=== PATIENT | female | born 1975 | race Caucasian/White ===

== ENCOUNTER 2018-04-24 08:37 | Emergency (ER) | payer OTHER, SELFPAY ==
[2018-04-24 08:38] VITALS: BP 121/70; PULSE 62; RESP 17; TEMP 36.4; O2SAT 98; BMI 25.7
--- NOTE | 2018-04-24 09:10 | RAD_ITS ---
STUDY: X-RAY - RIGHT HAND, ATTENTION FIRST FINGER REASON FOR EXAM: Female, 43 years old. Trauma. TECHNIQUE: 3 view(s) of the finger were obtained. COMPARISON: None. FINDINGS: Normal metacarpal head. Normal metacarpophalangeal joint. Normal proximal phalanx. Normal middle phalanx. Normal distal phalanx. Normal proximal interphalangeal joint. Normal distal interphalangeal joint. RAD/Finger(s) Min 2 Views IMPRESSION: No evidence of acute fracture or dislocation. Electronically Signed: Mauricio Brito DO at 9:57 EST , Service support ,
--- NOTE | 2018-04-24 09:13 | ED.DCSUM_ITS ---
- ER Visit Summary Date of Service: 04/24/18 Chief Complaint: [] History of Present Illness: The patient is a 43 F [] Physical Examination: [] Test Results: [] Emergency Department Course and Treatment: I assisted Dr. Spears in the hospital course of this patient. I reviewed the x-ray and there are no foreign bodies. The wound was cleansed and soaked by nursing. I then placed bacitracin on the wound. I will give her Augmentin as well. The wound was dressed by myself as well. She will keep the dressing on for 24 hours. Augmentin at home. She will follow-up with her PCP Treatment Plan: [] Disposition: Discharge Impression: Dog bite, left thumb This note was generated with [employer] software. It may contain incorrect words, spelling, and punctuation that were not noted in review of the chart prior to signing <Giancarlo Smallf - Last Filed: 04/24/18 10:11> - ER Visit Summary Date of Service: 04/24/18 Chief Complaint: Dog bite to right thumb History of Present Illness: The patient is a 43 F who presents for dog bite to the right thumb that occurred this morning. Patient was trying to break up 2 dogs fighting over a cow. The 1-year-old dog bit her thumb and she will get. Patient is having pain along the thumb as well as bleeding. Tetanus is up-to-date in the last 5 years. Patient denies any other injuries. Physical Examination: She is well-nourished and well-developed in no distress. Afebrile and hemodynamically stable. Examination of the right thumb shows puncture wounds to the lateral and medial side of the nail bed, small amount of distal fingernail missing without involvement of the nailbed, avulsion of the skin on the tip of the finger with a deep puncture wound. Patient has flexion and extension of the MCP and IP joint. No laxity of the thumb to varus and valgus stress. Se nsation intact. Brisk cap refill. Test Results: [] Emergency Department Course and Treatment: This is up-to-date. Patient was given Tylenol for pain. X-ray performed to evaluate for any possible retained teeth as the dog is young. Wound was soaked and cleansed thoroughly. Treatment Plan: [] Disposition: [] Impression: [] This note was generated with Dragon dictation software. It may contain incorrect words, spelling, and punctuation that were not noted in review of the chart prior to signing <Jennie Spears - Last Filed: 04/24/18 17:02> ED Disposition <Erik Small - Last Filed: 04/24/18 10:11> <Jennie Spears - Last Filed: 04/24/18 17:02> - Plan for ED Patient: Disposition: Home or Assisted Living Instructions: ED Bite Dog Prescriptions: Amox/Clavulanate Tablet [Augmentin Tablet] 875 mg PO Q12H #14 tab Referrals: Care Physician,No Primary [Primary Care Provider] -
[2018-04-24] MEDS: Acetaminophen 325 MG Tablet 650 MG PO (09:39)
--- NOTE | 2018-04-24 10:12 | ED.DEP ---
ED Disposition - Plan for ED Patient: Disposition: Home or Assisted Living Instructions: ED Bite Dog Prescriptions: Amox/Clavulanate Tablet [Augmentin Tablet] 875 mg PO Q12H #14 tab Referrals: Care Physician,No Primary [Primary Care Provider] -
[2018-04-24] MEDS: Amox/Clavulanate 875 MG Tablet PO (10:17)
--- NOTE | 2018-04-24 10:24 | ED.RN ---
DISCHARGE INSTRUCTIONS GIVEN TO AND REVIEWED WITH PATIENT, PATIENT DENIES QUESTIONS OR CONCERNS AND VOICES UNDERSTANDING OF DISCHARGE INSTRUCTIONS. PT AMBULATES OUT OF ROOM WITHOUT DIFFICULTY.
== END 2018-04-24 10:24 | disposition home or self-care (01) ==
PROVIDERS: Emergency Provider Emergency Medicine
DX: S60.371A Other superficial bite of right thumb, initial encounter (principal); W54.0XXA Bitten by dog, initial encounter; Y93.9 Activity, unspecified; Y92.9 Unspecified place or not applicable
CPT/HCPCS: 73140; 99283

== ENCOUNTER 2018-10-22 23:16 | Emergency (ER) | payer OTHER, SELFPAY ==
[2018-10-22 23:17] VITALS: BP 127/82; PULSE 71; RESP 16; TEMP 36.6; O2SAT 99; BMI 26.1
[2018-10-23] MEDS: SUMAtriptan 6 MG/0.5 ML Vial SC (00:13)
--- NOTE | 2018-10-23 00:22 | ED.VIS.HA ---
History of Present Illness Chief Complaint: Headache Informant: Patient Onset: Hours - 2 Context: Gradual, Onset Timing: Continuous Quality: Similar Prior Headaches, Throbbing Location: left fronto-parietal Current Severity: Severe Maximum Severity: Severe Worsened by: light Relieved by: not by ibuprofen, benadryl, OTC Dayquil Associated Symptoms: Photophobia. Negative for: Fever, Nausea, Vomiting, Sore Throat, Sinus Pressure, Numbness, Blurred Vision, Visual Loss Injury: - - no injury/fall Narrative: Patient with a long-standing history of migraines and she is having a similar headache. She has not had one in a while so she does not have any prescription medications for them right now. She does not have obvious triggers. She had a cold a week or 2 ago but it has been resolved for a while. She denies any peripheral neurologic symptoms or neck stiffness, no fevers. Prior similar symptoms: Yes - Past Medical History (1) Nonrheumatic mitral (valve) prolapse Status: Chronic (2) SVT (supraventricular tachycardia) Status: Chronic (3) Sinus tachycardia Status: Chronic (4) Hyperlipidemia Status: Chronic (5) Hypothyroidism Status: Chronic (6) Presence of permanent cardiac pacemaker Status: Chronic (7) Migraines Status: Chronic Past Medical History - Allergies and Home Meds Allergies/Adverse Reactions: Allergies No Known Allergies Allergy (Verified 10/22/18 23:19) Primary Care Physician: Care Physician,No Primary [Primary Care Provider] - Lives: With Family Smoking Status: Never smoker Review of Systems General: Denies: Chills, Fever, Sweats Eyes: Denies: Visual changes - bilaterally, Diplopia Gastrointestinal: Denies: Nausea, Vomiting Musculoskeletal: Denies: Neck pain, Back pain, Swelling, Extremity Pain Skin: Denies: Rash, Wounds Neurological: Reports: Headache. Denies: Weakness, Parasthesia, Numbness Physical Exam Vital Signs/Narrative: Vital Signs Temp Pulse Resp BP Pulse Ox 10/22/18 23:17 97.9 F 71 16 127/82 H 99 Inital Vital Signs reviewed: Yes General: Well nourished, Well developed Head: NC, AT Eyes: Perrl, EOMI, - - +photophobia ENT: Moist mucous membranes, No rhinorrhea Neck: Supple, No Lymphadenopathy, No JVD, Nontender, No Meningismus Skin: Normal color, No rash, No Trauma Neuro: Alert, Oriented x3, Cranial nerves II-XII grossly intact, Normal Strength, Normal Sensation, Normal Gait Psychological: Normal affect, Normal Mood Diagnostic/Tx/Re-eval - Medical Decision Making Given that patient took some ibuprofen and Benadryl prior to getting here and the headache started short time ago, she was given Imitrex 6 mg subcu. However this did not help her headaches so she was given an IV with fluids, Reglan, Toradol 15 mg. On reevaluation she is feeling much better and her headache is completely gone, she has a ride home and is comfortable with discharge. ED Disposition - Plan for ED Patient: Disposition: Home or Assisted Living Diagnosis: Migraine headache Instructions: ED, Migraine (Classical) Referrals: Radha Mederos DO [STAFF PHYSICIAN] - 1 Week if not improving
[2018-10-23] MEDS: Metoclopramide 10 MG/2 ML Vial IV (01:08)
[2018-10-23] MEDS: Ketorolac 15 MG/ML Vial IV (01:09)
[2018-10-23 02:26] VITALS: BP 114/78; PULSE 70; RESP 16; O2SAT 97
== END 2018-10-23 02:27 | disposition home or self-care (01) ==
PROVIDERS: Emergency Provider Emergency Medicine
DX: G43.909 Migraine, unspecified, not intractable, without status migrainosus (principal); I34.1 Nonrheumatic mitral (valve) prolapse; I47.1 Supraventricular tachycardia; E03.9 Hypothyroidism, unspecified; Z95.0 Presence of cardiac pacemaker; Z79.899 Other long term (current) drug therapy
CPT/HCPCS: 96361; 96372; 96374; 96375; 99283; J7030; A4216; J3030

== ENCOUNTER 2020-04-12 13:04 | Emergency (ER) | payer OTHER, SELFPAY ==
[2020-04-12 13:05] VITALS: BP 121/77; PULSE 70; RESP 16; TEMP 35; O2SAT 98; BMI 27.7
--- NOTE | 2020-04-12 13:12 | VDLE_ITS ---
Reason For Study: pain Procedure LEFT This is a venous duplex using B-mode, color GSV is normal. flow and spectral Doppler. CFV is compressible, spontaneous, phasic, Exam performed portable in ED. competent, and demonstrates normal The exam was abbreviated due to the COVID 19 augmentation. protocol. FV is compressible, spontaneous, phasic, The exam was diagnostic. competent and demonstrates normal A preliminary report was called and/or faxed augmentation. to Dr. Santana. POP V is compressible, spontaneous, phasic, competent and demonstrates normal augmentation. T/P Trunk is compressible. PTV is compressible. LT PerV is compressible. Interpretation Summary There is no evidence of left lower extremity deep vein thrombosis. Left great saphenous vein appears patent and compressible segmentally. COVID-19 protocol utilized Ordering Physician: Jim Santana Performed By: Stephane Menezes RVT
--- NOTE | 2020-04-12 13:13 | ED.DCSUM_ITS ---
History of Present Illness Chief Complaint: Lower Extremity Injury Informant: Patient Narrative: 45-year-old female presenting with left leg pain. She states that it is in her left popliteal fossa and left upper calf. She states it started this morning. Patient has history of DVT x2 which she states were provoked after surgical procedures. Patient does not have any clotting disorder. She denies chest pain, palpitations, shortness of breath. Patient called her PCP to get an office visit and she was sent to the ER for ultrasound - Past Medical History (1) Hyperlipidemia Status: Chronic (2) Hypothyroidism Status: Chronic (3) Migraines Status: Chronic (4) Nonrheumatic mitral (valve) prolapse Status: Chronic (5) SVT (supraventricular tachycardia) Status: Chronic Past Medical History - Allergies and Home Meds Allergies/Adverse Reactions: Allergies No Known Allergies Allergy (Verified 04/12/20 13:55) Primary Care Physician: Liam Gonzalez MD [Primary Care Provider] - Prior records reviewed: Yes Past Medical History: - - Viewed in problem list Surgical History: noncontributory Lives: Spouse/ Significant Other Smoking Status: Never smoker Alcohol: None Drugs: None Review of Systems General: Denies: Chills, Fever, Sweats Eyes: Denies: Visual changes - bilaterally, Diplopia ENT: Denies: Rhinorrhea, Sore throat Cardiovascular: Denies: Chest pain, Palpitations Respiratory: Denies: Dyspnea, Cough, Dyspnea on exertion Gastrointestinal: Denies: Abdominal pain, Nausea, Vomiting, Diarrhea, Melena, Hematochezia Genitourinary: Denies: Dysuria, Hematuria, Frequency Musculoskeletal: Reports: Swelling, Extremity Pain - Left calf pain and swelling Skin: Denies: Rash, Abscess Physical Exam Vital Signs/Narrative: Vital Signs Temp Pulse Resp BP Pulse Ox 04/12/20 13:05 95 F L 70 16 121/77 H 98 General: Well nourished, Well developed, No Acute Distress Head: Normocephalic, Atraumatic Eyes: Perrl, EOMI ENT: Moist mucous membranes, No rhinorrhea Neck: Supple, Nontender Cardiovascular: Regular rate, Regular rhythm Respiratory: No distress, CTA bilaterally, Chest nontender Extremities: Edema, Calf Tenderness - Mild swelling and tenderness of the left upper calf and popliteal region. No cords palpated. Skin: Normal color, No rash Neurological: Alert, Oriented x3, Cranial nerves II-XII grossly intact Psychological: Normal affect, Normal Mood Diagnostic/Tx/Re-eval - Medical Decision Making Patient presents with pain in the left leg and is concerned for DVT as she has had 2 DVTs in the past. These were provoked however. Patient called her PCP and was sent to the ER for ultrasound. Her duplex of the left lower extremity is negative. Patient counseled to use compression and ice as well as anti- inflammatories at home. She is discharged home in stable condition. Impression: 1. Left calf swelling ED Disposition - Plan for ED Patient: Disposition: Home or Assisted Living Instructions: ED Leg Spasm Referrals: Liam Gonzalez MD [Primary Care Provider] -
== END 2020-04-12 14:20 | disposition home or self-care (01) ==
PROVIDERS: Emergency Provider Student in an Organized Health Care Education/Training Program; PCP Family Medicine
DX: M79.89 Other specified soft tissue disorders (principal); E03.9 Hypothyroidism, unspecified; E78.5 Hyperlipidemia, unspecified; I34.1 Nonrheumatic mitral (valve) prolapse; I47.1 Supraventricular tachycardia; G43.909 Migraine, unspecified, not intractable, without status migrainosus; Z86.718 Personal history of other venous thrombosis and embolism; Z79.899 Other long term (current) drug therapy
CPT/HCPCS: 93971; 99282

== ENCOUNTER 2021-08-11 21:52 | Emergency (ER) | payer OTHER, SELFPAY ==
[2021-08-11 21:53] VITALS: BP 150/90; PULSE 71; RESP 19; TEMP 36.8; O2SAT 99; BMI 25.8
--- NOTE | 2021-08-11 22:12 | EDS_ITS ---
HPI History of Present Illness Chief Complaint: Upper Extremity Injury Informant: patient Narrative Narrative: Patient presents with inability to get ring off of her hand. She feels some discomfort distal to it. She feels it is swelling. She placed it and then did a lot of gardening today that she thinks aggravated it. Nothing makes it better or worse. No other complaints. [facility] Medical History Hyperlipidemia Hypothyroidism Nonrheumatic mitral (valve) prolapse Presence of permanent cardiac pacemaker Sinus tachycardia SVT (supraventricular tachycardia) Home Medications levothyroxine [Levoxyl] 200 mcg PO DAILY 07/23/14 [History Last Taken Unknown] ivabradine [Corlanor] 7.5 mg PO BID 10/24/15 [History Last Taken Unknown] bupropion HCl 200 mg PO DAILY 04/12/20 [History Last Taken Unknown] sertraline 200 mg PO DAILY 04/12/20 [History Last Taken Unknown] Allergy/AdvReac Type Severity Reaction Status Date / Time No Known Allergies Allergy Verified 08/11/21 21:53 Social History Smoking Status: Never smoker ROS ROS ED Constitutional Constitutional ED: Denies fever(s) Gastrointestinal Gastrointestinal: Denies nausea or vomiting Musculoskeletal Musculoskeletal: Reports other Details: Soreness at finger. See history of present illness Integumentary Denies Abrasions or rash Neurologic Neurologic: Reports paresthesias and other Details: Very slight paresthesias distal that wax and wane Hematologic/Lymphatic Hematologic/Lymphatic: Denies easy bleeding or easy bruising EXAM Physical Exam Const Vital Signs: 08/11/21 21:53 Temperature 98.2 F Temperature Source Temporal Pulse Rate 71 Respiratory Rate 19 H Blood Pressure 150/90 H Blood Pressure Mean 110 Pulse Ox 99 Oxygen Delivery Method Room Air Positive well nourished and well developed General Appearance ED: well developed HEENT normocephalic and atraumatic Resp normal respiratory effort Extremity Extremity Narrative: There is a very wide-based range of motion overlying the proximal pharynx of the left middle/long finger. On top of this or several other rings that spin around the medical and her collar. These have already had attempts at cutting off by the fire department. There is no notable edema or color change distal to this. Neuro Sensorium / Orientation: alert Skin Rashes: no rashes MDM MDM MDM Narrative Medical decision making narrative: I had placed IV tourniquet wrapping from distal to proximal end of the finger when I saw her. We are trying to decrease edema to see if we can get this off without cutting. Procedure: Removal ring: We were using the cutting wheel to cut off. We ran a charge power. We are having trouble getting it to charge. Nursing staff was able to get the equipment to slowly nap try and pull the ring off. This was done with success and patient feels better. Discharge Plan Triage Chief Complaint: Upper Extremity Injury ED Provider: Levi Quintero Dx/Rx/DC Orders Clinical Impression: Tight ring on finger Instructions: ED Finger Sprain Prescriptions: No Action levothyroxine [Levoxyl] 112 MCG tablet 200 mcg PO DAILY RF: 0 Corlanor 5 MG tablet 7.5 mg PO BID RF: 0 sertraline 100 MG tablet 200 mg PO DAILY RF: 0 bupropion HCl 100 MG tablet 200 mg PO DAILY RF: 0 Primary Care Provider: Liam Gonzalez Referrals: Liam Gonzalez MD [Primary Care Provider] - As Needed Disposition Disposition: Home, Self Care
[2021-08-11 23:55] VITALS: BP 150/90; PULSE 71; RESP 19; O2SAT 99
== END 2021-08-11 23:55 | disposition home or self-care (01) ==
PROVIDERS: Emergency Provider Emergency Medicine; PCP Family Medicine; Visit Provider Emergency Medicine
DX: S60.444A External constriction of right ring finger, initial encounter (principal); I47.1 Supraventricular tachycardia; W49.04XA Ring or other jewelry causing external constriction, initial encounter; E78.5 Hyperlipidemia, unspecified; E03.9 Hypothyroidism, unspecified; Z95.0 Presence of cardiac pacemaker; I34.1 Nonrheumatic mitral (valve) prolapse; Z79.899 Other long term (current) drug therapy
CPT/HCPCS: 99283; A4216

== ENCOUNTER → 2022-08-12 | Outpatient (CLI) | payer BC, SELFPAY ==
[2022-08-16 13:07] LABS: HPV APTIMA, High Risk Negative (Negative)
== END | disposition home or self-care (01) ==
LOC: LABSPEC 15:19
PROVIDERS: PCP Family Medicine; Visit Provider Nurse Practitioner Women's Health
DX: Z12.4 Encounter for screening for malignant neoplasm of cervix (principal)
CPT/HCPCS: 87624; 88175; G0145

== ENCOUNTER → 2022-08-29 | Outpatient (CLI) | payer BC, SELFPAY ==
--- NOTE | 2022-08-29 14:23 | BI_ITS ---
MAMMOGRAPHY - BILATERAL DIAGNOSTIC REASON FOR EXAM: Female, 47 years old. Palpable lump in the upper outer quadrant of the left breast. PERTINENT HISTORY: Grandmother with breast cancer. TECHNIQUE: Digital bilateral breast marco (3D mammographic acquisition) in the CC and MLO projections. 2-D mediolateral oblique (MLO) and craniocaudad (CC) views of both breasts were obtained. CAD: Full Field Digital Mammography with Computer Added Detection was performed. COMPARISON: Comparison is made with prior outside examination dated August 10, 2018. FINDINGS: Breast Composition: The breasts are extremely dense, which lowers the sensitivity of mammography. There are no dominant masses or suspicious calcifications. A pacemaker battery pack is seen in the left axillary region. No other significant abnormalities are identified. There has been no significant change since the prior study. BI/DIAG MAMM W/CAD, BILAT IMPRESSION: Stable bilateral diagnostic mammogram. Targeted sonographic correlation is recommended for further evaluation. ASSESSMENT CATEGORY: BIRADS Category 0: Incomplete. Need additional imaging evaluation. A letter regarding these results will be sent to the patient by the facility within 30 days. Approximately 10% of breast cancers are not detected by mammography. A normal mammogram should not delay biopsy of a clinically suspicious abnormality. Electronically Signed: Karl Tucker MD at 15:23 EDT ,
--- NOTE | 2022-08-29 14:23 | US_ITS ---
EXAM: Diagnostic unilateral left breast ultrasound. REASON FOR EXAM: Female, 47 years old. Palpable lump in the upper outer quadrant of the left breast. PERTINENT HISTORY: Mother with breast cancer. TECHNIQUE: Real-time luo scale and color sonographic images were obtained in the clinical area of palpable lump in the left upper outer breast from the 12:00 to 2:00 position and the left axilla. COMPARISON: Diagnostic breast mammogram from same day. Left breast ultrasound from 07/04/2014. FINDINGS: Ultrasound findings: The left upper outer breast and left axilla were assessed with ultrasound in the clinical area of concern. There is a 1.5 x 1.0 x 0.5 cm lymph node correlating with the palpable lump and demonstrating benign features. No suspicious masses or abnormal fluid collections. US/Breast Limited Unilateral IMPRESSION: Benign lymph node correlating with the patient''s palpable lump. ASSESSMENT CATEGORY: BIRADS Category 2: Negative. A letter regarding these results will be sent to the patient by the facility within 30 days. No further assessment is recommended. If clinical concerns for enlarging mass on physical examination, repeat diagnostic ultrasound and mammogram is recommended. Approximately 10% of breast cancers are not detected by mammography. A normal mammogram should not delay biopsy of a clinically suspicious abnormality. Electronically Signed: Chano Mccann DO at 13:24 EDT ,
== END | disposition home or self-care (01) ==
PROVIDERS: PCP Family Medicine; Referring Provider Nurse Practitioner Women's Health; Visit Provider Nurse Practitioner Women's Health
DX: N63.21 Unspecified lump in the left breast, upper outer quadrant (principal)
CPT/HCPCS: 76642; 77062; 77066; G0279

== ENCOUNTER 2024-12-05 08:07 | Emergency (ER) | payer BC, SELFPAY ==
[2024-12-05 08:07] VITALS: BP 133/82; PULSE 64; RESP 17; TEMP 36; O2SAT 100; BMI 23.6
--- NOTE | 2024-12-05 08:41 | EX.ED.DYSGE1 ---
HPI History of Present Illness Chief Complaint: Laceration Narrative Narrative: Patient is a 49-year-old female with past medical history of hypothyroidism, supraventricular tachycardia, hyperlipidemia who presents to the emergency department the chief complaint of left index finger laceration. Patient states that she was cutting a bone [facility]ound Center piece yesterday slipped and cut her finger. She states that this happened around 3:00 in the afternoon yesterday on 12/04/2024. States her last tetanus shot was between 5 and 6 years ago. Patient states that this morning when she removed the Band-Aid it was bleeding significantly prompting her to come here to the emergency department to be evaluated and for sutures. [facility] Medical History Hypothyroidism Nonrheumatic mitral (valve) prolapse Hyperlipidemia Sinus tachycardia SVT (supraventricular tachycardia) Presence of permanent cardiac pacemaker Home Medications ?Medication ?Instructions ?Recorded ?Last Taken ?Type levothyroxine 112 mcg tablet 200 mcg PO DAILY 07/23/14 Unknown History (Levoxyl) ivabradine 5 mg tablet (Corlanor) 7.5 mg PO BID 10/24/15 Unknown History lisdexamfetamine 10 mg capsule 10 mg PO DAILY 12/05/24 Unknown History (Vyvanse) lumateperone 42 mg capsule 42 mg PO DAILY 12/05/24 Unknown History (Caplyta) Allergy/AdvReac Type Severity Reaction Status Date / Time No Known Allergies Allergy Verified 08/11/21 21:53 Surgical History History of hernia repair History of cholecystectomy Social History Smoking Status: Never smoker ROS ROS ED ROS Narrative Neurological: Denies numbness, weakness, tingling Musculoskeletal: Complains of left index finger pain Skin: Complains of cut to the left index finger EXAM Physical Exam Narrative Exam Narrative: General: Patient lying in bed rest comfortably did not appear to be acute distress Head: Atraumatic, normocephalic Eyes: PERRL bilaterally, EOMI bilateral, no conjunctival injection noted Neck: Soft, supple, trachea midline Cardiovascular: Regular rate Extremities: Radial pulses +2/4 in the bilateral extremities, +5/5 strength noted in the bilateral upper and lower extremities Neurological: Patient sensation grossly intact in the median, ulnar and radial nerve distribution bilaterally, patient followed commands that she was at [facility] year is 2024 Skin: Patient has a proximately 1-1/2 cm laceration noted to the left index finger along the radial aspect no active bleeding Const Vital Signs: 12/05/24 08:07 Temperature 96.8 F L Temperature Source Temporal Pulse Rate 64 Respiratory Rate 17 Blood Pressure 133/82 H Blood Pressure Mean 99 Pulse Ox 100 Oxygen Delivery Method Room Air MDM MDM MDM Narrative Medical decision making narrative: Patient is a 49-year-old female who presents to the emergency department chief complaint of finger laceration and bleeding. On the differential diagnose includes Melamin to laceration, open fracture although have low suspicion for this as the wound is superficial. I discussed with the patient that given the injury occurred at 3:00 in the afternoon yesterday it is more than 16 hours post injury and we do not suture these wounds closed as there is high risk of infection at that point in time. Patient tetanus shot is updated. She is advised to watch out for signs infection such as purulent drainage, surrounding redness if this is to occur she should return to the emergency department or call her physician for antibiotics. Steri-Strips were applied to the finger as well as a Band-Aid. All question concerns answered she was discharged home in stable condition. Discharge Plan Triage Chief Complaint: Laceration ED Provider: Stefano Avilez Dx/Rx/DC Orders Clinical Impression: Finger laceration, SVT (supraventricular tachycardia), Hypothyroidism Prescriptions: No Action levothyroxine [Levoxyl] 112 MCG tablet 200 mcg PO DAILY ivabradine [Corlanor] 5 MG tablet 7.5 mg PO BID Caplyta 42 mg capsule 42 mg PO DAILY lisdexamfetamine [Vyvanse] 10 mg capsule 10 mg PO DAILY Primary Care Provider: Liam Gonzalez Referrals: Liam Gonzalez MD [Primary Care Provider, Family Practice] Activity Restrictions/Additional Instructions: Follow-up with your doctor in the outpatient setting. Watch out for signs of infection such as surrounding redness, purulent drainage if this to occur you should return to the emergency department or go to your primary care physician for antibiotics. Keep the area dry and clean. Given that this injury is more than 16 hours ago we do not suture these shots as this increases your risk of infection if we do so. Return with worsening symptoms or other concerns Print Language: Turkmen Disposition Disposition: Home, Self Care
== END 2024-12-05 08:55 | disposition home or self-care (01) ==
LOC: ED 08:46
PROVIDERS: Emergency Provider Emergency Medicine; PCP Family Medicine; Visit Provider Emergency Medicine
DX: S61.211A Laceration without foreign body of left index finger without damage to nail, initial encounter (principal); I47.10 Supraventricular tachycardia, unspecified; E78.5 Hyperlipidemia, unspecified; E03.9 Hypothyroidism, unspecified; W26.8XXA Contact with other sharp object(s), not elsewhere classified, initial encounter; Z79.890 Hormone replacement therapy; Z90.49 Acquired absence of other specified parts of digestive tract; Z23 Encounter for immunization
CPT/HCPCS: 99282